=== PATIENT | female | born 1960 | race African-American/Black ===

== ENCOUNTER 2020-11-29 10:58 | Inpatient (IN) ==
[2020-11-29] MEDS ORDERED: ONDANSETRON 4 MG/2 ML VIAL IV STA (11:16)
[2020-11-29 12:51] LABS: Basophils % 1.4 % (0.0-0.8); Eosinophils # 0.2 10*3/uL (0.0-0.87); Eosinophils % 6.4 % (0.00-10.9); Hematocrit 31.7 VOL% (35.7-47.0); Hemoglobin 9.5 GM/DL (12.0-16.0); Immature Granulocytes % 0.4 %; Immature Granulocytes Absolute 0.01 #; Lymphocytes % 33.9 % (21.3-54.2); Mean Corpuscular Volume 82.8 FL (87-102); Mean Platelet Volume 11.9 FL (9.6-12.0); Monocytes % 11.7 % (1.7-12.7); Neutrophils % 46.2 % (38.7-73.9); Platelet Count 282 T/CUMM (130-400); Red Blood Count 3.83 MC/CUMM (3.8-5.5); Red Cell Distribution Width 18.3 % (9.3-17.3); White Blood Count 2.8 T/CUMM (4-12)
[2020-11-29 13:01] LABS: Glucose,Urine (UA) Negative (Negative); Protein,Urine Negative; Urine Appearance Clear (Clear); Urine Color Yellow (Yellow); Urine Specific Gravity 1.015 (1.001-1.035)
[2020-11-29 13:02] LABS: Bilirubin,Urine Negative (Negative); Blood, Urine Large mg/dL (Negative); Ketones,Urine 3+ mg/dL (Negative); Nitrite,Urine Negative (Negative); RBC,Urine TNTC /HPF (0-4); Squamous Epithelial Cell,Urine Few /HPF (0-10); WBC,Urine Rare /HPF (0-6)
[2020-11-29 13:03] LABS: Mucus,Urine Trace /LPF (Occasional)
[2020-11-29 13:22] LABS: Alanine Aminotransferase < 9 U/L (13-56); Albumin 2.6 G/DL (3.4-5.0); Alkaline Phosphatase 54 U/L (45-117); Aspartate Amino Transferase 26 U/L (0-37); Blood Urea Nitrogen 2 MG/DL (7-18); Calcium 8.5 MG/DL (8.5-10.1); Estimated Glom Filtration Rate 129 ML/MIN; Osmolality,Calculated 267.7 MOS/KG (273-304); Total Protein 7.2 G/DL (6.4-8.3)
[2020-11-29 13:33] LABS: Glucose 45 MG/DL (74-106)
[2020-11-29] MEDS ORDERED: DEXTROSE 50% 25 GM/50 ML VIAL IV STA (13:33)
[2020-11-29] MEDS ORDERED: GLUCAGON 1 MG VIAL IM PRN (14:57)
[2020-11-29] MEDS ORDERED: SODIUM CHLORIDE 0.9% 1,000 ML IV SCH (15:00)
[2020-11-29] MEDS: DEXTROSE 5% NACL 0.45% 1,000 ML IV SCH (18:46)
[2020-11-29] MEDS: ONDANSETRON 4 MG/2 ML VIAL IV PRN (20:38)
[2020-11-29] MEDS ORDERED: SODIUM CHLORIDE 0.9% 1,000 ML IV STA (20:39)
[2020-11-29] MEDS ORDERED: ENOXAPARIN 40 MG/0.4 ML SYRINGE SUBCUT SCH (21:00)
[2020-11-30] MEDS: DEXTROSE 5% NACL 0.45% 1,000 ML IV SCH ×4 (02:29→22:53)
[2020-11-30 05:31] LABS: Eosinophils # 0.2 10*3/uL (0.0-0.87); Eosinophils % 5.9 % (0.00-10.9); Hematocrit 25.7 VOL% (35.7-47.0); Hemoglobin 8.3 GM/DL (12.0-16.0); Immature Granulocytes % 0.3 %; Immature Granulocytes Absolute 0.01 #; Lymphocytes # 0.9 10*3/uL (1.4-4.0); Lymphocytes % 30.9 % (21.3-54.2); Mean Corpuscular HGB Conc 32.3 GM/DL (32-36); Mean Corpuscular Volume 77.4 FL (87-102); Mean Platelet Volume 10.9 FL (9.6-12.0); Monocytes % 12.2 % (1.7-12.7); Neutrophils % 49.7 % (38.7-73.9); Platelet Count 246 T/CUMM (130-400); Red Blood Count 3.32 MC/CUMM (3.8-5.5); Red Cell Distribution Width 17.7 % (9.3-17.3); White Blood Count 2.9 T/CUMM (4-12)
[2020-11-30] MEDS: PANTOPRAZOLE 40 MG TABLET PO SCH (08:41)
[2020-11-30 08:57] LABS: % Iron Saturation 52.6 % (18-50); Osmolality,Calculated 271.5 MOS/KG (273-304)
[2020-12-01] MEDS: LACTATED RINGERS 1,000 ML IV SCH (08:42)
[2020-12-01] MEDS ORDERED: ETOMIDATE 20 MG/10 ML VIAL IV ONE (09:01)
[2020-12-01] MEDS ORDERED: PHENYLEPHRINE 1 MG/10 ML SYRINGE IV ONE (09:01)
[2020-12-01] MEDS ORDERED: propofoL 200 MG/20 ML VIAL IV ONE (09:01)
[2020-12-01] MEDS ORDERED: LIDOCAINE 2% 5 ML VIAL ONE (09:01)
[2020-12-01 12:29] LABS: Basophils % 1.3 % (0.0-0.8); Eosinophils # 0.1 10*3/uL (0.0-0.87); Eosinophils % 6.1 % (0.00-10.9); Hematocrit 27.8 VOL% (35.7-47.0); Hemoglobin 8.9 GM/DL (12.0-16.0); Lymphocytes # 0.7 10*3/uL (1.4-4.0); Lymphocytes % 29.8 % (21.3-54.2); Mean Corpuscular Volume 78.8 FL (87-102); Neutrophils % 55.8 % (38.7-73.9); Platelet Count 209 T/CUMM (130-400); Red Blood Count 3.53 MC/CUMM (3.8-5.5); White Blood Count 2.3 T/CUMM (4-12)
[2020-12-01 12:54] LABS: Calcium 7.8 MG/DL (8.5-10.1)
[2020-12-01] MEDS: DEXTROSE 5% NACL 0.45% 1,000 ML IV SCH ×3 (13:19→23:10)
[2020-12-01] MEDS: PANTOPRAZOLE 40 MG TABLET PO SCH (13:19)
[2020-12-01] MEDS ORDERED: SODIUM CHLORIDE 0.9% 500 ML IV ONE ×2 (16:06→17:22)
[2020-12-01] MEDS: ONDANSETRON 4 MG/2 ML VIAL IV PRN (19:43)
[2020-12-01] MEDS ORDERED: ONDANSETRON 4 MG/2 ML VIAL IV ONE (23:43)
[2020-12-02 04:59] LABS: Basophils % 1.2 % (0.0-0.8); Eosinophils # 0.2 10*3/uL (0.0-0.87); Hematocrit 24.4 VOL% (35.7-47.0); Hemoglobin 7.8 GM/DL (12.0-16.0); Immature Granulocytes % 0.4 %; Immature Granulocytes Absolute 0.01 #; Lymphocytes # 0.9 10*3/uL (1.4-4.0); Lymphocytes % 34.8 % (21.3-54.2); Mean Corpuscular Volume 77.5 FL (87-102); Mean Platelet Volume 11.7 FL (9.6-12.0); Neutrophils % 38.6 % (38.7-73.9); Platelet Count 213 T/CUMM (130-400); Red Blood Count 3.15 MC/CUMM (3.8-5.5); White Blood Count 2.6 T/CUMM (4-12)
[2020-12-02 05:36] LABS: Calcium 7.2 MG/DL (8.5-10.1); Osmolality,Calculated 262.2 MOS/KG (273-304)
[2020-12-02] MEDS ORDERED: MAGNESIUM SULF RIDER 4 GM in PREMIX 1 EACH IV ONE (07:30)
[2020-12-02] MEDS: DEXTROSE 5% NACL 0.45% 1,000 ML IV SCH ×2 (07:39→15:15)
[2020-12-02] MEDS: POTASSIUM CHLORIDE RIDER 10 MEQ in PREMIX 1 EACH IV PRN ×5 (08:00→12:31)
[2020-12-02] MEDS: LACTATED RINGERS 1,000 ML IV SCH (08:02)
[2020-12-02 08:18] LABS: Eosinophils 5 % (0-10); Lymphocytes 38 % (20-55); Segmented Neutrophils 45 % (50-85); Total Cells Counted 99
[2020-12-02 08:19] LABS: Anisocytosis 1+; Hypochromasia 1+; Macrocytosis Slight; Microcytosis 1+
[2020-12-02 08:20] LABS: Platelet Estimate Normal
[2020-12-02] MEDS ORDERED: EPINEPHrine 1 MG/10 ML SYRINGE ONE (09:44)
[2020-12-02] MEDS ORDERED: ATROPINE 1 MG/10 ML SYRINGE ONE (09:44)
[2020-12-02] MEDS: MAGNESIUM SULF RIDER 2 GM in PREMIX 1 EACH IV SCH ×2 (09:54→11:23)
[2020-12-02 10:45] LABS: Troponin I < 0.015 NG/ML (0.00-0.045)
[2020-12-02] MEDS: PANTOPRAZOLE 40 MG TABLET PO SCH (11:46)
[2020-12-02 16:49] LABS: Troponin I < 0.015 NG/ML (0.00-0.045)
[2020-12-03] MEDS: DEXTROSE 5% NACL 0.45% 1,000 ML IV SCH ×3 (00:10→16:08)
[2020-12-03] MEDS: POTASSIUM CHLORIDE 20 MEQ TABLET PO PRN ×6 (01:02→22:16)
[2020-12-03] MEDS: PANTOPRAZOLE 40 MG TABLET PO SCH (09:37)
[2020-12-03] MEDS: LACTATED RINGERS 1,000 ML IV SCH (09:37)
[2020-12-04] MEDS: DEXTROSE 5% NACL 0.45% 1,000 ML IV SCH ×2 (00:05→08:05)
[2020-12-04] MEDS: POTASSIUM CHLORIDE 20 MEQ TABLET PO PRN ×5 (00:15→16:37)
[2020-12-04 06:26] LABS: Basophils % 1.2 % (0.0-0.8); Eosinophils # 0.3 10*3/uL (0.0-0.87); Eosinophils % 11.2 % (0.00-10.9); Hematocrit 24.7 VOL% (35.7-47.0); Hemoglobin 8.2 GM/DL (12.0-16.0); Immature Granulocytes % 0.4 %; Immature Granulocytes Absolute 0.01 #; Lymphocytes # 0.8 10*3/uL (1.4-4.0); Lymphocytes % 31.1 % (21.3-54.2); Mean Corpuscular HGB Conc 33.2 GM/DL (32-36); Mean Corpuscular Volume 74.4 FL (87-102); Mean Platelet Volume 11.3 FL (9.6-12.0); Monocytes % 16.6 % (1.7-12.7); Neutrophils % 39.5 % (38.7-73.9); Platelet Count 200 T/CUMM (130-400); Red Blood Count 3.32 MC/CUMM (3.8-5.5); Red Cell Distribution Width 17.5 % (9.3-17.3); White Blood Count 2.4 T/CUMM (4-12)
[2020-12-04 06:52] LABS: Calcium 7.4 MG/DL (8.5-10.1); Osmolality,Calculated 260.4 MOS/KG (273-304)
[2020-12-04] MEDS: LACTATED RINGERS 1,000 ML IV SCH (08:05)
[2020-12-04] MEDS: PANTOPRAZOLE 40 MG TABLET PO SCH (09:11)
[2020-12-04] MEDS: ONDANSETRON 4 MG/2 ML VIAL IV PRN (09:12)
[2020-12-04] MEDS ORDERED: MAGNESIUM SULF RIDER 4 GM in PREMIX 1 EACH IV ONE (09:30)
[2020-12-04] MEDS ORDERED: MAGNESIUM SULF RIDER 50 ML IV ONE ×2 (10:19)
[2020-12-05] MEDS: DEXTROSE 5% NACL 0.45% 1,000 ML IV SCH ×5 (00:11→21:47)
[2020-12-05 05:35] LABS: Basophils % 1.4 % (0.0-0.8); Eosinophils # 0.2 10*3/uL (0.0-0.87); Eosinophils % 9.8 % (0.00-10.9); Hematocrit 23.5 VOL% (35.7-47.0); Hemoglobin 7.6 GM/DL (12.0-16.0); Immature Granulocytes % 0.5 %; Immature Granulocytes Absolute 0.01 #; Lymphocytes # 0.7 10*3/uL (1.4-4.0); Lymphocytes % 34.6 % (21.3-54.2); Mean Corpuscular HGB Conc 32.3 GM/DL (32-36); Mean Platelet Volume 10.3 FL (9.6-12.0); Monocytes % 9.3 % (1.7-12.7); Neutrophils % 44.4 % (38.7-73.9); Platelet Count 176 T/CUMM (130-400); Red Blood Count 3.05 MC/CUMM (3.8-5.5); White Blood Count 2.1 T/CUMM (4-12)
[2020-12-05 05:52] LABS: Calcium 7.4 MG/DL (8.5-10.1); Osmolality,Calculated 262.2 MOS/KG (273-304)
[2020-12-05 06:06] LABS: Eosinophils 7 % (0-10); Lymphocytes 31 % (20-55); Segmented Neutrophils 53 % (50-85); Total Cells Counted 100
[2020-12-05 06:07] LABS: Burr Cells Slight; Hypochromasia 1+; Microcytosis 1+; Ovalocytes Slight; Platelet Estimate Adequate
[2020-12-05] MEDS: POTASSIUM CHLORIDE 20 MEQ TABLET PO PRN ×3 (10:49→15:12)
[2020-12-05] MEDS: PANTOPRAZOLE 40 MG TABLET PO SCH ×2 (10:49→21:39)
[2020-12-05] MEDS: LACTATED RINGERS 1,000 ML IV SCH (10:49)
[2020-12-05] MEDS: METOCLOPRAMIDE 10 MG/2 ML VIAL IV SCH ×3 (13:02→22:51)
[2020-12-05] MEDS: ONDANSETRON 4 MG/2 ML VIAL IV PRN (13:08)
[2020-12-05] MEDS ORDERED: PANTOPRAZOLE 40 MG TABLET PO SCH (21:00)
[2020-12-05] MEDS ORDERED: SODIUM CHLORIDE 0.9% 500 ML IV ONE (22:29)
[2020-12-06 04:50] LABS: Basophils % 1.5 % (0.0-0.8); Eosinophils # 0.2 10*3/uL (0.0-0.87); Eosinophils % 8.8 % (0.00-10.9); Hematocrit 21.9 VOL% (35.7-47.0); Hemoglobin 7.3 GM/DL (12.0-16.0); Lymphocytes % 34.9 % (21.3-54.2); Mean Corpuscular HGB Conc 33.3 GM/DL (32-36); Mean Corpuscular Volume 75.5 FL (87-102); Mean Platelet Volume 10.2 FL (9.6-12.0); Monocytes % 12.9 % (1.7-12.7); Neutrophils % 41.9 % (38.7-73.9); Platelet Count 159 T/CUMM (130-400); Red Cell Distribution Width 17.7 % (9.3-17.3); White Blood Count 2.7 T/CUMM (4-12)
[2020-12-06 05:12] LABS: Eosinophils 13 % (0-10); Hypochromasia 2+; Lymphocytes 37 % (20-55); Microcytosis 1+; Ovalocytes Slight; Platelet Estimate Adequate; Segmented Neutrophils 43 % (50-85); Total Cells Counted 100
[2020-12-06 05:15] LABS: Calcium 7.2 MG/DL (8.5-10.1); Osmolality,Calculated 259.5 MOS/KG (273-304)
[2020-12-06] MEDS: METOCLOPRAMIDE 10 MG/2 ML VIAL IV SCH ×4 (05:39→23:12)
[2020-12-06] MEDS: DEXTROSE 5% NACL 0.45% 1,000 ML IV SCH ×3 (06:47→23:11)
[2020-12-06] MEDS: PANTOPRAZOLE 40 MG TABLET PO SCH ×2 (09:24→21:23)
[2020-12-06] MEDS: POTASSIUM CHLORIDE 20 MEQ TABLET PO PRN (09:24)
[2020-12-06] MEDS ORDERED: SODIUM CHLORIDE 0.9% 1,000 ML IV ONE ×2 (09:34→13:05)
[2020-12-06] MEDS ORDERED: MAGNESIUM HYDROXIDE SUSP 30 ML UDCUP PO PRN (13:33)
[2020-12-06] MEDS ORDERED: ZALEPLON 5 MG CAPSULE PO PRN (21:56)
[2020-12-07] MEDS: METOCLOPRAMIDE 10 MG/2 ML VIAL IV SCH ×4 (05:31→23:23)
[2020-12-07 06:38] LABS: Basophils % 1.9 % (0.0-0.8); Eosinophils # 0.2 10*3/uL (0.0-0.87); Eosinophils % 10.3 % (0.00-10.9); Immature Granulocytes % 0.5 %; Immature Granulocytes Absolute 0.01 #; Lymphocytes # 0.7 10*3/uL (1.4-4.0); Lymphocytes % 33.6 % (21.3-54.2); Mean Corpuscular HGB Conc 33.3 GM/DL (32-36); Mean Corpuscular Volume 73.7 FL (87-102); Mean Platelet Volume 10.3 FL (9.6-12.0); Monocytes % 8.4 % (1.7-12.7); Neutrophils % 45.3 % (38.7-73.9); Platelet Count 143 T/CUMM (130-400); Red Blood Count 2.85 MC/CUMM (3.8-5.5); Red Cell Distribution Width 17.7 % (9.3-17.3); White Blood Count 2.1 T/CUMM (4-12)
[2020-12-07] MEDS: DEXTROSE 5% NACL 0.45% 1,000 ML IV SCH ×2 (06:52→16:38)
[2020-12-07 07:07] LABS: Eosinophils 5 % (0-10); Hypochromasia 2+; Lymphocytes 33 % (20-55); Microcytosis 1+; Platelet Estimate Adequate; Segmented Neutrophils 57 % (50-85); Total Cells Counted 100
[2020-12-07 07:13] LABS: Alanine Aminotransferase < 9 U/L (13-56); Albumin 1.9 G/DL (3.4-5.0); Alkaline Phosphatase 42 U/L (45-117); Aspartate Amino Transferase 20 U/L (0-37); Blood Urea Nitrogen 6 MG/DL (7-18); Calcium 7.2 MG/DL (8.5-10.1); Estimated Glom Filtration Rate 122 ML/MIN; Glucose 80 MG/DL (74-106); Osmolality,Calculated 260.5 MOS/KG (273-304); Total Protein 5.2 G/DL (6.4-8.3)
[2020-12-07] MEDS: PANTOPRAZOLE 40 MG TABLET PO SCH ×2 (08:57→21:07)
[2020-12-07] MEDS ORDERED: SODIUM CHLORIDE 0.9% 1,000 ML IV ONE (12:18)
[2020-12-07] MEDS ORDERED: SODIUM CHLORIDE 0.9% 1,000 ML IV PRN (12:41)
[2020-12-08] MEDS: DEXTROSE 5% NACL 0.45% 1,000 ML IV SCH ×5 (01:55→23:16)
[2020-12-08 03:05] LABS: Hematocrit 25.8 VOL% (35.7-47.0)
[2020-12-08 03:12] LABS: Hemoglobin 9.2 GM/DL (12.0-16.0)
[2020-12-08 05:14] LABS: Basophils % 1.8 % (0.0-0.8); Eosinophils # 0.3 10*3/uL (0.0-0.87); Eosinophils % 11.5 % (0.00-10.9); Hematocrit 26.8 VOL% (35.7-47.0); Hemoglobin 9.4 GM/DL (12.0-16.0); Immature Granulocytes % 0.5 %; Immature Granulocytes Absolute 0.01 #; Lymphocytes # 0.6 10*3/uL (1.4-4.0); Lymphocytes % 26.3 % (21.3-54.2); Mean Corpuscular HGB Conc 35.1 GM/DL (32-36); Mean Corpuscular Volume 74.2 FL (87-102); Mean Platelet Volume 9.7 FL (9.6-12.0); Monocytes % 5.1 % (1.7-12.7); Neutrophils % 54.8 % (38.7-73.9); Platelet Count 128 T/CUMM (130-400); Red Blood Count 3.61 MC/CUMM (3.8-5.5); Red Cell Distribution Width 17.8 % (9.3-17.3); White Blood Count 2.2 T/CUMM (4-12)
[2020-12-08 05:30] LABS: INR 1.3; PT Patient Result 13.5 SECS (9.8-11.9)
[2020-12-08 05:32] LABS: Alanine Aminotransferase < 9 U/L (13-56); Albumin 2.1 G/DL (3.4-5.0); Alkaline Phosphatase 51 U/L (45-117); Aspartate Amino Transferase 27 U/L (0-37); Blood Urea Nitrogen 8 MG/DL (7-18); Calcium 7.4 MG/DL (8.5-10.1); Estimated Glom Filtration Rate 143 ML/MIN; Glucose 83 MG/DL (74-106); Osmolality,Calculated 258.7 MOS/KG (273-304); Total Protein 5.5 G/DL (6.4-8.3)
[2020-12-08 05:34] LABS: Band Neutrophils 1 % (0-10); Eosinophils 8 % (0-10); Lymphocytes 23 % (20-55); Segmented Neutrophils 66 % (50-85); Total Cells Counted 100
[2020-12-08 05:35] LABS: Hypochromasia 1+; Microcytosis 1+; Ovalocytes Slight; Platelet Estimate Normal
[2020-12-08] MEDS: METOCLOPRAMIDE 10 MG/2 ML VIAL IV SCH ×4 (06:28→23:16)
[2020-12-08] MEDS ORDERED: ceFAZolin 1,000 MG in SYRINGE 1 EACH IV ONE (08:00)
[2020-12-08] MEDS: PANTOPRAZOLE 40 MG TABLET PO SCH ×2 (10:01→21:28)
[2020-12-08] MEDS ORDERED: LEVALBUTEROL 1.25 MG/3 ML NEB RESP TX STA (12:07)
[2020-12-08] MEDS: LACTATED RINGERS 1,000 ML IV SCH (12:17)
[2020-12-08] MEDS ORDERED: propofoL 200 MG/20 ML VIAL IV ONE (14:02)
[2020-12-08] MEDS ORDERED: LIDOCAINE 2% 5 ML VIAL ONE (14:03)
[2020-12-08] MEDS: MENTHOL/ZINC OXIDE OINT 71 GM JAR TOP SCH ×2 (16:50→21:27)
[2020-12-09] MEDS: METOCLOPRAMIDE 10 MG/2 ML VIAL IV SCH ×2 (05:17→11:30)
[2020-12-09] MEDS: DEXTROSE 50% 25 GM/50 ML VIAL IV PRN ×2 (05:17→08:35)
[2020-12-09 06:13] LABS: Basophils % 1.4 % (0.0-0.8); Eosinophils # 0.2 10*3/uL (0.0-0.87); Eosinophils % 10.4 % (0.00-10.9); Hematocrit 25.6 VOL% (35.7-47.0); Hemoglobin 8.9 GM/DL (12.0-16.0); Immature Granulocytes % 0.5 %; Immature Granulocytes Absolute 0.01 #; Lymphocytes # 0.5 10*3/uL (1.4-4.0); Lymphocytes % 23.2 % (21.3-54.2); Mean Corpuscular HGB Conc 34.8 GM/DL (32-36); Mean Corpuscular Volume 75.1 FL (87-102); Monocytes % 3.8 % (1.7-12.7); Neutrophils % 60.7 % (38.7-73.9); Platelet Count 111 T/CUMM (130-400); Red Blood Count 3.41 MC/CUMM (3.8-5.5); Red Cell Distribution Width 18.2 % (9.3-17.3); White Blood Count 2.1 T/CUMM (4-12)
[2020-12-09 06:25] LABS: Albumin 1.8 G/DL (3.4-5.0); Bilirubin,Total 1.2 MG/DL (0.2-1.0); Calcium 7.3 MG/DL (8.5-10.1); Osmolality,Calculated 259.7 MOS/KG (273-304); Total Protein 5.1 G/DL (6.4-8.3)
[2020-12-09] MEDS ORDERED: SODIUM CHLORIDE 0.9% 1,000 ML IV ONE (06:36)
[2020-12-09 06:37] LABS: Band Neutrophils 7 % (0-10); Eosinophils 14 % (0-10); Hypochromasia 2+; Lymphocytes 18 % (20-55); Microcytosis 1+; Segmented Neutrophils 59 % (50-85); Total Cells Counted 100
[2020-12-09 06:38] LABS: Ovalocytes Slight; Platelet Estimate Decreased; Target Cells Slight
[2020-12-09] MEDS ORDERED: ALBUTEROL/IPRATROPIUM 3 ML NEB RESP TX ONE (06:53)
[2020-12-09] MEDS ORDERED: ALBUTEROL/IPRATROPIUM 3 ML NEB RESP TX SCH (07:00)
[2020-12-09] MEDS ORDERED: DEXTROSE 10% 1,000 ML IV SCH (07:00)
[2020-12-09 07:02] LABS: ABG Base Excess -12.3 MMOL/L (-2.5-2.5); ABG HCO3 14.7 MMOL/L (20-26); ABG Oxygen Saturation 98.8 % (95-100); ABG PCO2 26.3 MM HG (35-48); ABG PH 7.304 (7.35-7.45); ABG TCO2 12.3 MMOL/L (23-27)
[2020-12-09] MEDS ORDERED: LACTULOSE 320 GM/480 ML BOTTLE RECTAL ONE (08:09)
[2020-12-09] MEDS: DEXTROSE 5% NACL 0.45% 1,000 ML IV SCH (08:34)
[2020-12-09] MEDS ORDERED: SODIUM BICARBONATE 50 MEQ/50 ML SYRINGE IV ONE ×2 (08:37→09:44)
[2020-12-09] MEDS ORDERED: SODIUM BICARBONATE 50 MEQ/50 ML VIAL IV ONE ×2 (08:42→08:56)
[2020-12-09] MEDS ORDERED: MAGNESIUM SULF RIDER 4 GM in PREMIX 1 EACH IV ONE (08:49)
[2020-12-09] MEDS ORDERED: POTASSIUM CHLORIDE RIDER 10 MEQ in PREMIX 1 EACH IV SCH (09:00)
[2020-12-09] MEDS: LACTATED RINGERS 1,000 ML IV SCH (09:00)
[2020-12-09] MEDS ORDERED: HYDROCORTISONE 100 MG VIAL IV SCH (09:30)
[2020-12-09] MEDS ORDERED: ATROPINE 1 MG/10 ML SYRINGE ONE (09:44)
[2020-12-09] MEDS ORDERED: EPINEPHrine 1 MG/10 ML SYRINGE ONE (09:44)
[2020-12-09] MEDS ORDERED: DOPamine 800 MG/250 ML PREMIX IV PRN (09:51)
[2020-12-09] MEDS ORDERED: FLUDROCORTISONE 0.1 MG TABLET PEG SCH (10:00)
[2020-12-09] MEDS ORDERED: POTASSIUM CHLORIDE RIDER 20 MEQ in PREMIX 1 EACH IV SCH (10:00)
[2020-12-09] MEDS ORDERED: POTASSIUM PHOSPHATE 30 MMOL in SODIUM CHLORIDE 0.9% 250 ML IV ONE (11:00)
[2020-12-09 11:51] VITALS: BP 0/0
== END 2020-12-09 10:58 | disposition expired | DRG 391 ==
LOC: N.ED 10:58 → N.EDINP 10:58 → SUATTDRO 14:57 → N.TELEN 17:15 → SUATTDRO 12-02 10:48 → N.ICU 12-09 09:08
PROVIDERS: ADMIT Family Medicine; ATTEND Internal Medicine
PROC: EGDWPEG (ICD-10-PCS; 2020-12-08 10:05)